=== PATIENT | female | born 1970 | race African-American/Black ===

== ENCOUNTER → 2024-07-14 | Day surgery (SDC) | payer OTHER ==
[~2024-07-14] MED LIST: ATORVASTATIN CA20 MG PO; HAIR VITAMIN1 EACH PO; HYDROCHLOROTHIA25 MG PO; HYOSCYAMINE SULFATE 0.5 MG/ML INJ ONE; LEVOTHYROXINE50 MCG PO; LIDOCAINE HCL 2% LOCAL INJ 5 ML SDV VIAL INJ ONE; METFORMIN HCL500 MG PO; MIDAZOLAM HCL 2 MG/2 ML VIAL ONE; PROPOFOL IV EMULSION 50 ML IV ONE; TRESIBA100 UNIT/1; VITAMIN D310 MCG PO; ZESTRIL40 MG PO
[2024-07-14] MEDS: LACTATED RINGER'S 1,000 ML ONE (09:10)
[2024-07-14 09:37] VITALS: TEMP 98.4
[2024-07-14 09:50] VITALS: BP 100/80; PULSE 100; RESP 16; O2SAT 98
== END | disposition home or self-care (01) ==
LOC: OR 07:25
PROVIDERS: ATTEND Internal Medicine Gastroenterology
DX: Z12.11 Encounter for screening for malignant neoplasm of colon (principal); K63.5 Polyp of colon; K64.8 Other hemorrhoids; D64.9 Anemia, unspecified; E11.9 Type 2 diabetes mellitus without complications; I10 Essential (primary) hypertension; E78.5 Hyperlipidemia, unspecified; E03.9 Hypothyroidism, unspecified; Z01.810 Encounter for preprocedural cardiovascular examination; Z79.84 Long term (current) use of oral hypoglycemic drugs; Z79.4 Long term (current) use of insulin; Z79.899 Other long term (current) drug therapy; Z80.0 Family history of malignant neoplasm of digestive organs
CPT/HCPCS: 36415; 45385; 82948; 93005; J1980; J2003; J2250; J2704; J7121; 45378